=== PATIENT | female | born 1985 | race Caucasian/White ===

== ENCOUNTER → 2017-06-04 | Outpatient (CLI) | payer OTHER | END | disposition home or self-care (01) | LOC: C.PAPS 15:45 | PROVIDERS: ATTEND Physician Assistant | DX: Z12.4 Encounter for screening for malignant neoplasm of cervix (principal) ==

== ENCOUNTER → 2017-07-15 | Outpatient (CLI) | payer OTHER | END | disposition home or self-care (01) | LOC: C.LABSPEC 11:05 | PROVIDERS: ATTEND Obstetrics & Gynecology | DX: Z34.81 Encounter for supervision of other normal pregnancy, first trimester (principal) ==

== ENCOUNTER → 2017-07-15 | Outpatient (CLI) | payer OTHER ==
[2017-07-15 14:38] LABS: BASO % 0.1 %; BASO ABS # 0.01 K/uL (0-0.2); EOS ABS # 0.08 K/uL (0-0.5); HEMATOCRIT 39.1 % (37-47); HEMOGLOBIN 13.6 g/dL (12.0-16.0); IG# 0.01 K/uL (0.00-0.02); LYMPH % 20.3 %; MEAN CORPUSCULAR HGB CONC 34.8 g/dl (32-36); MEAN PLATELET VOLUME 10.8 fL (7.4-10.4); MONO % 5.5 %; MONO ABS # 0.43 K/uL (0.11-0.59); NEUT ABS # 5.75 K/uL (1.4-6.5); PLATELET COUNT 199 K/uL (130-400); RED CELL DISTRIBUTION WIDTH CV 12.9 % (11.5-14.5); RED CELL DISTRIBUTION WIDTH SD 43.3 fL (36.4-46.3); WHITE BLOOD COUNT 7.88 K/uL (4.8-10.8)
== END | disposition home or self-care (01) ==
LOC: C.LAB1850 12:31
PROVIDERS: ATTEND Obstetrics & Gynecology
DX: Z34.81 Encounter for supervision of other normal pregnancy, first trimester (principal)

== ENCOUNTER → 2017-12-03 | Outpatient (CLI) | payer OTHER ==
[2017-12-03 09:37] LABS: HEMATOCRIT 36.3 % (37-47); HEMOGLOBIN 12.7 g/dL (12.0-16.0)
== END | disposition home or self-care (01) ==
LOC: C.LAB1850 07:06
PROVIDERS: ATTEND Obstetrics & Gynecology
DX: Z34.83 Encounter for supervision of other normal pregnancy, third trimester (principal)

== ENCOUNTER 2023-11-24 20:15 | Inpatient (IN) ==
[2023-11-24 20:48] LABS: Basophils # (auto) 0.01 K/uL (0.00-0.20); Basophils % (auto) 0.1 %; Eosinophils # (auto) 0.12 K/uL (0.00-0.50); Eosinophils % (auto) 1.1 %; Hematocrit (blood only) 38.4 % (37.0-47.0); Immature Granulocytes # (auto) 0.04 K/uL (0.01-0.20); Immature Granulocytes % (auto) 0.4 %; Lymphocytes # (auto) 1.15 K/uL (1.20-3.40); Lymphocytes % (auto) 10.8 %; Mean Corpuscular Hemoglobin 31.4 pg (25.0-34.0); Mean Corpuscular Hgb Conc 33.9 g/dL (32.0-36.0); Mean Corpuscular Volume 92.8 fL (80.0-100.0); Mean Platelet Volume 10.5 fL (9.4-12.4); Monocytes # (auto) 0.56 K/uL (0.11-0.59); Monocytes % (auto) 5.3 %; Neutrophils # (auto) 8.72 K/uL (1.40-6.50); Neutrophils % (auto) 82.3 %; Platelet Count 180 K/uL (130-400); RDW Coefficient of Variation 12.1 % (11.5-14.5); RDW Standard Deviation 41.5 fL (36.4-46.3); Red Blood Count 4.14 M/uL (4.20-5.40)
[2023-11-24 20:56] LABS: Appearance Urine Clear (Clear); Bacteria Urine Automated None Seen (None Seen); Bilirubin Urine Negative (Negative); Blood Urine 1+ (Negative); Cast Urine Automated 0-2 /lpf (0-2); Color Urine Yellow; Epithelial Cell Urine Auto 0-2 /hpf (0-2); Glucose Urine UA Negative (Negative); Ketones Urine Trace (Negative); Leukocyte Esterase Urine Negative (Negative); Nitrite Urine Negative (Negative); Protein Urine Negative (Negative); RBC Urine Automated 0-2 /hpf (0-2); Specific Gravity Urine 1.008 (1.000-1.030); Urobilinogen Urine Negative (Negative); WBC Urine Automated 0-5 /hpf (0-5); pH Urine 6.5 (4.5-7.5)
--- NOTE | 2023-11-24 20:56 | Emergency Department Note ---
History of Present Illness General Chief complaint: Abdominal Pain Stated complaint: CT AT [place], DX APPENDICITIS, ABD PAIN, NAUSEA Time Seen by Provider: 11/24/23 20:54 History of Present Illness Maximum Pain Intensity: 2 NAME: MARA LOW AGE: 38 SEX: F : 1985 ARRIVES VIA: Walk-In INFORMANT: Patient ED PROVIDER(S): CONNOR Baca, Michael Montaño MD The patient is a pleasant well-appearing 38-year-old female who arrives to the emergency department for evaluation of right lower quadrant abdominal pain. She reports she was seen as an outpatient at [facility] today and had a CT scan performed of the abdomen and pelvis that showed acute appendicitis. She reports has been having abdominal pain since yesterday at 1:00. She denies fever, however reports nausea without vomiting. Her vital signs are currently stable, she is afebrile. Home Medications Medication Instructions Recorded Confirmed Type metronidazole 0.75 % topical cream 1 applic topical DAILY #45 grams 09/04/23 11/24/23 Rx oxymetazoline 1 % topical cream 1 applic topical DAILY #30 grams 09/04/23 11/24/23 Rx (Rhofade) Allergies Allergy/AdvReac Type Severity Reaction Status Date / Time No Known Allergies Allergy Verified 11/24/23 22:29 Past Med/Surg History Problem List (Updated 11/25/23 @ 01:18 by CONNOR Mcgee) Acute appendicitis (Acute) Acute appendicitis Umbilical hernia Perineal laceration during delivery, delivered Spontaneous vaginal delivery Encounter for pre-operative examination Spontaneous rupture of amniotic membranes 40 weeks gestation of Post-dates (Acute) Medical History GERD (gastroesophageal reflux disease) Occasional heartburn History of varicella Heart murmur Asymptomatic. Had it since childbirth Surgical History H/O oral surgery [place] teeth removed Social History Smoking Status: Never smoker Second Hand Exposure: No; Do You Dip or Chew Tobacco: No; Hx Alcohol Use: No Hx Substance Use: No Preferred Language: Occitan Communication Ability: Effective Parlor Maid Required: No Beliefs That Will Affect Care: None marital status: Current Living Situation: Spouse Other Information That Helps Us Care for You: No Feels Safe at Home: Yes Safety Concerns: Feels Safe At This Time Assistive Devices: None Physical Exam Vital Signs Vital Signs - 24 hr 11/24/23 20:19 11/24/23 20:22 11/24/23 20:32 Temperature 36.9 C Temperature Source Temporal Artery Scan Pulse Rate 80 Respiratory Rate 18 Respiratory Effort / Characteristics Non-Labored Respiratory Depth Normal Normal Blood Pressure 125/80 Blood Pressure Mean 95 Pulse Oximetry 99 Oxygen Delivery Method Room Air Room Air Sepsis Recent Fever Within 48 Hours No Sepsis New/Unexplained Change in Mental Status No Sepsis Action Taken by Nursing No Action Required VITALS: Vitals are noted on the nurse's note and reviewed by myself. Vital signs stable. GENERAL: 38-year-old female, in no acute distress, nondiaphoretic, well- developed well-nourished. SKIN: The skin was without rashes, erythema, edema, or bruising. HEAD: Normocephalic atraumatic. HEART: Regular rate and rhythm without murmurs gallops or rubs. LUNGS: Clear to auscultation bilaterally without wheezes, rales or rhonchi. No retractions or accessory muscle use. ABDOMEN: Positive bowel sounds x 4. Soft, tender to palpation right lower quadrant, Christina sign negative. No guarding or rebound tenderness. MUSCULOSKELETAL: No muscle atrophy, erythema, or edema noted. Normal gait. Strength 5/5 throughout. NEURO: Patient was alert and oriented to person place and time. No focal neurological deficits. Course Administered Medications Sodium Chloride (Nss) 1,000 mls @ 125 mls/hr IV .Q8H SHANNAN Stop: 12/24/23 22:29 Last Admin: 11/24/23 22:37 Dose: 125 mls/hr Documented By: BOB Acetaminophen (Ofirmev) 1,000 mg in 100 mls @ 400 mls/hr IV Q8H PRN PRN Reason: Moderate Pain (Scale 4, 5, 6) Stop: 11/27/23 22:15 Last Infusion: 11/25/23 00:41 Dose: Infused Documented By: Admin: 11/24/23 22:38 Dose: 400 mls/hr Documented By: BOB Ondansetron HCl (Ondansetron Inj 2 Mg/Ml 2 Ml Vial) 4 mg IV Q6H PRN PRN Reason: Nausea And Vomiting Stop: 12/24/23 22:15 Last Admin: 11/24/23 22:38 Dose: 4 mg Documented By: BOB Discontinued Medications Piperacillin Sod/Tazobactam Sod (Zosyn) 4.5 gm in 100 mls @ 200 mls/hr IV NOW ONE Stop: 11/24/23 22:12 Last Infusion: 11/24/23 22:32 Dose: Infused Documented By: Admin: 11/24/23 21:50 Dose: 200 mls/hr Documented By: GOLDEN Medical Decision Making Differential Diagnosis Appendicitis, ovarian cyst, ovarian torsion, ectopic , TOA, PID, infections, diverticulitis, UTI, obstruction, mesenteric ischemia, aortic pathology, inflammatory bowel disease, renal colic, PUD, pancreatitis, biliary pathology, hernia, volvulus, constipation, as well as other pathologies. Medical Records Attestation: I reviewed the patient's medical records. Home Medications Current Medication List: was personally reviewed by me Laboratory Data Attestation: I reviewed the patient's lab results. No leukocytosis, stable hemoglobin hematocrit, no electrolyte abnormalities, hCG negative, urinalysis negative for infection. 11/24/23 20:29 11/24/23 20:29 Lab Results 11/24/23 Range/Units 20:29 WBC 10.60 (4.8-10.8) K/ul RBC 4.14 L (4.20-5.40) M/uL Hgb 13.0 (12.0-16.0) g/dl Hct 38.4 (37.0-47.0) % MCV 92.8 (80.0-100.0) fL MCH 31.4 (25.0-34.0) pg MCHC 33.9 (32.0-36.0) g/dL RDW Std Deviation 41.5 (36.4-46.3) fL RDW Coeff of James 12.1 (11.5-14.5) % Plt Count 180 (130-400) K/uL MPV 10.5 (9.4-12.4) fL Immature Gran % (Auto) 0.4 % Neut % (Auto) 82.3 % Lymph % (Auto) 10.8 % Josephine % (Auto) 5.3 % Eos % (Auto) 1.1 % Baso % (Auto) 0.1 % Neut # (Auto) 8.72 H (1.40-6.50) K/uL Lymph # (Auto) 1.15 L (1.20-3.40) K/uL Josephine # (Auto) 0.56 (0.11-0.59) K/uL Eos # (Auto) 0.12 (0.00-0.50) K/uL Baso # (Auto) 0.01 (0.00-0.20) K/uL Immature Gran # (Auto) 0.04 (0.01-0.20) K/uL Sodium 138 (136-145) mmol/L Potassium 3.5 (3.5-5.1) mmol/L Chloride 103 (98-107) mmol/L Carbon Dioxide 28 (21-32) mmol/L Anion Gap 7 (3-11) BUN 8 (6-23) mg/dl Creatinine 0.85 (0.6-1.2) mg/dl Est Cr Clr Drug Dosing 91.2 ml/min Est GFR ( Amer) 101.5 ml/min Est GFR (Non-Af Amer) 87.5 ml/min BUN/Creatinine Ratio 9.4 L (10-20) Glucose 93 (70-99(Fasting)) mg/dl Calcium 9.4 (8.6-10.3) mg/dl Total Bilirubin 0.8 (0.2-1.0) mg/dl AST 16 (13-39) U/L ALT 10 (7-52) U/L Alkaline Phosphatase 65 (34-104) U/L Total Protein 7.7 (6.0-8.3) gm/dl Albumin 4.6 (3.4-5.0) gm/dl Globulin 3.1 (2.5-4.0) gm/dl Albumin/Globulin Ratio 1.5 (0.9-2) Lipase 28 (11-82) U/L HCG, Qual Negative (Negative) Urine Color Yellow Urine Appearance Clear (Clear) Urine pH 6.5 (4.5-7.5) Ur Specific [place] 1.008 (1.000-1.030) Urine Protein Negative (Negative) Urine Glucose (UA) Negative (Negative) Urine Ketones Trace H (Negative) Urine Blood 1+ H (Negative) Urine Nitrite Negative (Negative) Urine Bilirubin Negative (Negative) Urine Urobilinogen Negative (Negative) Ur Leukocyte Esterase Negative (Negative) Urine WBC (Auto) 0-5 (0-5) /hpf Urine RBC (Auto) 0-2 (0-2) /hpf U Hyaline Cast (Auto) 0-2 (0-2) /lpf U Epithel Cells (Auto) 0-2 (0-2) /hpf Urine Bacteria (Auto) None Seen (None Seen) Blood Pressure Blood Pressure Findings: Normal blood pressure MDM Narrative The patient is a pleasant well-appearing 38-year-old male who arrives to the emergency department with the above complaint. Upon examination the patient was able to provide a report showing an outpatient CT with a diagnosis of acute appendicitis. A saline was established, CBC, CMP, hCG qualitative, as well as urinalysis were obtained. CBC shows no leukocytosis, with stable hemoglobin moderate. CMP shows no electrolyte abnormalities. Urinalysis is negative for infection. Beta-hCG negative. No repeat imaging was obtained due to the availability of the report. I spoke with [facility] general surgery who agreed to accept the patient for admission with surgical intervention the next morning due to the patient eating at approximately 7 PM. An IV dose of Zosyn was ordered for the patient and administered per general surgery's request. Case management was contacted to facilitate admission. Please refer to general surgery's documentation for further patient care. Continuous monitor worker: Order was placed for continuous monitor worker. Patient was placed on the monitor worker. Patient was noted to be in normal sinus rhythm at an initial rate of 80 bpm. Impression & Plan Acute appendicitis Discharge Plan Visit Data Chief Complaint: Abdominal Pain Stated Complaint: CT AT [place], DX APPENDICITIS, ABD PAIN, NAUSEA ED Provider: Michael Montaño ED Midlevel Provider: Jena Meléndez Discharge Problem: Acute appendicitis Discharge Instructions Interventions: ED Discharge Assessment Last Done: 11/24/23 23:29 Discharge Problem: Acute appendicitis Qualifiers: Acute appendicitis type: unspecified acute appendicitis type Qualified Code(s): K35.80 - Unspecified acute appendicitis
[2023-11-24 21:08] LABS: Pregnancy Test, Serum Negative (Negative)
[2023-11-24 21:12] LABS: Albumin Globulin Ratio 1.5 (0.9-2); Albumin Level 4.6 gm/dl (3.4-5.0); BUN Creatinine Ratio 9.4 (10-20); Bilirubin,Total 0.8 mg/dl (0.2-1.0); Calcium 9.4 mg/dl (8.6-10.3); Creatinine Clr Calc Pharmacy 91.2 ml/min; Est GFR (African American) 101.5 ml/min; Est GFR (Non-African American) 87.5 ml/min; Globulin 3.1 gm/dl (2.5-4.0); Potassium 3.5 mmol/L (3.5-5.1); Total Protein 7.7 gm/dl (6.0-8.3)
[2023-11-24] MEDS: PIPERACILLIN/TAZOBACTAM 4.5 GM/100 ML BAG IV ONE (21:50)
[2023-11-24] MEDS ORDERED: MoRPHine SULFATE 4 MG/ML 1 ML CARP\\VIAL IV PRN (22:16)
--- NOTE | 2023-11-24 22:16 | History & Physical Report ---
Date of Service November 24, 2023 Assessment & Plan (1) Acute appendicitis: Plan: Do to the patient's clinical symptoms as well as findings on her CT scan at [place] she will be admitted to the surgical service proceeding as follows: N.p.o. status will be implemented Antibiotics will be providedZosyn has been initiated in the emergency department this will continue Analgesics will be provided Antiemetics will be provided We will provide IV fluid for hydration We will tentatively plan on having the patient undergo an appendectomy with Dr. Pierre Jackson of [facility] physician group general surgery on 11/25/2023. I have discussed the risks, benefits, and alternatives with the patient and she wishes to proceed At the present time the patient is comfortable resting in bed and in no distress. She is normotensive without tachycardia or fever and does not exhibit leukocytosis on labs. Additional recommendations will be forthcoming based on operative findings and her postoperative recovery thereafter Will use SCDs for DVT prevention, no chemical means due to planned surgery She will be a level 1 full code History of Present Illness Chief Complaint: "I was told I have appendicitis" Primary Care Provider: Libby Hernandez DO This is a 38-year-old female who presented to the emergency department at the recommendation of her primary care team. The patient notes that she developed some periumbilical abdominal pain at approximate 1:00 PM on 11/23/2023. Because of this she sought medical attention with her primary care team who ordered an outpatient CT scan which was performed in [place], [place]. This will be described below. The patient now notes that the pain is mostly in her lower abdomen. She denies any fevers, shakes, or chills. She has had some nausea without emesis. She denies any modifying factors to her pain. She has never had any prior abdominal surgeries. Her most recent oral intake was at approximately 7:00 PM where she says she ate a Nepali weller. The CT scan report was obtained from [facility]. This showed the patient had some thickening of the tip of the cecum and the appendix. The appendix was dilated at approximately 12 mm with some periappendiceal inflammatory changes. There is no free fluid within the pelvis and no free intraperitoneal air. The interpreting radiologist felt that this likely represented an uncomplicated acute appendicitis. Since arrival to [facility] the patient has had labs performed where CBC revealed white blood cell count, hemoglobin, hematocrit, and platelet count were normal. Chemistry profile showed sodium and potassium as well as the BUN and creatinine were normal. There is no elevation of LFTs or lipase. Urinalysis was not indicative of infection. A test was negative. At the time my interview the patient was resting comfortably in bed and she was no distress. Allergies Allergy/AdvReac Type Severity Reaction Status Date / Time No Known Allergies Allergy Verified 11/24/23 22:29 Home Medications Medication Instructions Recorded Confirmed Type metronidazole 0.75 % topical cream 1 applic topical DAILY #45 grams 09/04/23 11/24/23 Rx oxymetazoline 1 % topical cream 1 applic topical DAILY #30 grams 09/04/23 11/24/23 Rx (Rhofade) Past Med/Surg History Problem List (Updated 11/25/23 @ 01:18 by CONNOR Mcgee) Acute appendicitis (Acute) Acute appendicitis Umbilical hernia Perineal laceration during delivery, delivered Spontaneous vaginal delivery Encounter for pre-operative examination Spontaneous rupture of amniotic membranes 40 weeks gestation of Post-dates (Acute) Medical History GERD (gastroesophageal reflux disease) Occasional heartburn History of varicella Heart murmur Asymptomatic. Had it since childbirth Surgical History H/O oral surgery [place] teeth removed Social History Smoking Status: Never smoker Second Hand Exposure: No; Do You Dip or Chew Tobacco: No; Hx Alcohol Use: No Hx Substance Use: No Preferred Language: French Communication Ability: Effective Bit Welder Required: No Beliefs That Will Affect Care: None marital status: Current Living Situation: Spouse Other Information That Helps Us Care for You: No Feels Safe at Home: Yes Safety Concerns: Feels Safe At This Time Assistive Devices: None Review of Systems Review of Systems: All systems reviewed & are unremarkable except as noted in HPI & below Physical Exam Constitutional: WD/WN, vitals as above Eyes: no conjunctival abnormality ENMT: Ears: no hearing impairment and no external ear abnormality Mouth: no oropharynx abnormality Neck: trachea midline Respiratory: normal respiratory effort; no respiratory distress and no labored breathing Cardiovascular: Rate/Rhythm: regular rate and regular rhythm Vessels: dorsalis pedis pulses present and radial pulses present Gastrointestinal (Abdomen): Abdomen is soft and nondistended. There is no rigidity. There is no rebound tenderness or guarding. Patient did have some tenderness with palpation greatest in the right lower quadrant over McBurney's point Musculoskeletal: No calf tenderness Skin: no rashes Neurologic: moves all extremities Psychiatric: A+Ox3, euthymic affect Results & Data Results & Data Vital Signs (Past 12 Hours) Vital Signs Temp Pulse Resp BP Pulse Ox O2 Del Method 11/24/23 20:22 Room Air 11/24/23 20:19 36.9 C 80 18 125/80 99 Room Air Supervising Physician Co-Signing Physician Notes I personally saw and evaluated the patient with Giuliano Barber PA-C and agree with the assessment and plan. 38 yo female with acute appendicitis Her CT report was reviewed, images were not available Admit, keep NPO, give IV ABX Will plan on a laparoscopic appendectomy, possible open PG Care Time/CCT Total # of Minutes Spent Total Time Spent with Patient: Total time spent is greater than 50% in coordination of care (as documented) at patient's floor/unit and/or counseling patient: Coding Level of Care Code 26007 INT INP/OBS CARE 3/75MIN Diagnoses Acute appendicitis K35.80
[2023-11-24] MEDS: SODIUM CHLORIDE 0.9% 1,000 ML IV SCH (22:37)
[2023-11-24] MEDS: ONDANSETRON INJ 2 MG/ML 2 ML VIAL IV PRN (22:38)
[2023-11-24] MEDS: ACETAMINOPHEN 1,000 MG/100 ML VIAL IV PRN (22:38)
[2023-11-25] MEDS: PIPERACILLIN/TAZOBACTAM 4.5 GM in DEXTROSE 5% MINI-B 100 ML IV SCH (04:05)
--- NOTE | 2023-11-25 09:58 | Surgery Progress Note ---
Date of Service November 25, 2023 Assessment & Plan (1) Acute appendicitis: Plan: Proceed today with laparoscopic appendectomy, possible open Consent was obtained, risks discussed including bleeding, infection, leak, abscess Admission and Anticipated Discharge Date Admission Date: November 24, 2023 Subjective Pt seen and examined. Still with RLQ pain. Afebrile. NO N/V. Review of Systems Constitutional: no fever and no chills Gastrointestinal: + abdominal pain; no nausea and no vomit ing Physical Exam Constitutional: WD/WN, vitals as above Gastrointestinal (Abdomen): Inspection/Auscultation: abdomen normal to inspection; abdomen not distended Percussion/Palpation: + abdomen tender (RLQ), + guarding and abdomen soft Results & Data Vital Signs (Past 12 Hours) Vital Signs Temp Pulse Resp BP Pulse Ox O2 Del Method 11/25/23 07:27 36.7 C 72 18 116/72 98 Room Air 11/25/23 04:44 37 C 56 L 18 104/69 98 Room Air 11/25/23 04:37 Room Air 11/25/23 04:07 51 L 16 92/55 L 98 Room Air 11/25/23 02:16 50 L 16 95/60 L 98 Room Air 11/24/23 22:30 65 18 110/72 98 PG Care Time/CCT Total # of Minutes Spent Total Time Spent with Patient: Total time spent is greater than 50% in coordination of care (as documented) at patient's floor/unit and/or counseling patient: Coding Level of Care Code 91436 SUB INP/OBS CARE 1/25MIN Diagnoses Acute appendicitis K35.80 Acute appendicitis type: unspecified acute appendicitis type (1) Acute appendicitis Acute appendicitis type: unspecified acute appendicitis type Qualified Code(s): K35.80 - Unspecified acute appendicitis
[2023-11-25] MEDS ORDERED: DEXAMETHASONE SOD INJ 4 MG/ML VIAL ONE (10:32)
[2023-11-25] MEDS ORDERED: fentaNYL citrate PF 100 MCG/2 ML VIAL ONE (10:32)
[2023-11-25] MEDS ORDERED: ONDANSETRON INJ 2 MG/ML 2 ML VIAL ONE (10:32)
[2023-11-25] MEDS ORDERED: ROCURONIUM BROMIDE 10 MG/ML 5 ML VIAL IV ONE (10:32)
[2023-11-25] MEDS ORDERED: LIDOCAINE 2% 2 ML VIAL/AMP(20MG/ML) INFIL ONE ×2 (10:32→12:40)
[2023-11-25] MEDS ORDERED: PROPOFOL IV EMULSION 10 MG/ML 20 ML VIAL IV ONE (10:32)
[2023-11-25] MEDS ORDERED: MIDAZOLAM HCL 1 MG/ML 2ML VIAL ONE (10:32)
[2023-11-25] MEDS: LACTATED RINGER'S 1,000 ML IV SCH ×2 (10:44→15:08)
[2023-11-25] MEDS ORDERED: KETOROLAC 30 MG/ML VIAL ONE (13:00)
[2023-11-25] MEDS: BUPIVACAINE/EPINEPHRINE 0.25% 1:200,000 30 ML VIAL ONE (13:06)
[2023-11-25] MEDS: FLOSEAL HEMOSTATIC MATRIX 5ML TOP ONE (13:06)
--- NOTE | 2023-11-25 13:16 | Post Operative Brief Note ---
PG Immediate Post Op with CF Date of Surgery November 25, 2023 Pre & Post Diagnosis Operation Date: 11/25/23 09:40 Pre-Op Diagnosis: Acute appendicitis Post-Op Diagnosis: Acute appendicitis without perforation I identified the patient and participated in the time-out.: Yes Procedure Operation Date: 11/25/23 09:40 Actual Procedures p Laparoscopic Appendectomy(Not Applicable) - Daniel Cardoso DO Surgeon Daniel Cardoso DO Construction Rigger Anabelle Roy PA-C Estimated Blood Loss 5 Findings See Below Acutely inflamed, dilated appendix without perforation Specimens Specimen Description: A. Appendix Drains Guardado Catheter (Inserted prior to procedure start by Kalia Regalado RN; 10cc in balloon; Clear, yellow urine returned) Anesthesia Type General Complications none Disposition Disposition: Recovery Room
--- NOTE | 2023-11-25 13:20 | Operative Report ---
PG Post Operative Report Pre & Post Diagnosis Operation Date: 11/25/23 09:40 Pre-Op Diagnosis: Acute appendicitis Post-Op Diagnosis: Acute appendicitis without perforation I identified the patient and participated in the time-out.: Yes Procedure Operation Date: 11/25/23 09:40 Actual Procedures p Laparoscopic Appendectomy(Not Applicable) - Daniel Cardoso DO Surgeon Daniel Cardoso DO Beauty Sales Consultant Anabelle Roy PA-C Estimated Blood Loss 5 Findings See Below Acutely inflamed, dilated appendix without perforation Specimens Appendix to pathology Drains None Anesthesia Type General Complications none Disposition Disposition: Recovery Room Indications 38 yo female with acute appendicitis Description of Procedure The patient was brought to the OR and placed in the supine position and SCD's placed. At this time she underwent general endotracheal anesthesia without incident. At this time a Guardado catheter was placed under sterile conditions. Her abdomen was prepped and draped in the usual sterile fashion. She was given appropriate pre-operative antibiotics. A timeout was called, the procedure was verified as Laparoscopic appendectomy, possible open. Surgical, anesthesia and nursing teams agreed and the procedure was begun. After injection of 0.25% Marcaine with epinephrine, a supraumbilical incision was made using a #11 blade scalpel and carried down to the fascia with a hemostat. The abdomen was then elevated with towel clamps and entered using the Veress needle confirming position using the saline drop test. Pneumoperitoneum was established and 5mm trocar was placed. Laparoscope was introduced. No injury was seen from our entrance to the abdomen. At this time a 5mm suprapubic port and 12mm LLQ port were placed under direct visualization. The patient was placed in Trendelenburg and rotated to the left. At this time the appendix was visualized and the tip was freed and elevated toward the abdominal wall. The appendix appeared inflamed, dilated and edematous without rupture. A window was created in the mesoappendix at the base of the appendix. A 45mm purple load stapler was then fired across the base of the appendix which appeared healthy. The mesoappendix was then taken using Harmonic device. The appendix was then placed in an Endocatch bag and removed through the LLQ port site. Staple line was inspected and was intact. Hemostasis was complete. 5mL Floseal hemostatic agent was placed on the staple line and along the mesoappendix. The 12 mm port was then closed at the fascial level using a 0 Vicryl suture using the suture passer. All ports were removed under direct visualization and no bleeding was noted. The abdomen was desufflated and the skin was closed using 4-0 Monocryl in a subcuticular fashion. Sterile dressings were applied. Guardado catheter was removed. The patient was then awakened from anesthesia having remained stable throughout the entire case and transported to PACU. All needle and sponge counts were correct x 2. The physician assistant clinical nurse manager was present and scrubbed for the entire procedure. She was essential in positioning, prepping and draping the patient, retraction and exposure, closure of the incisions and placement of the dressings. I attest to the content of the Intraoperative Record and any orders documented therein. Any exceptions are noted below.
[2023-11-25] MEDS ORDERED: oxyCODONE HCL IR 5 MG TAB (IMMEDIATE RELEASE) PO PRN ×2 (13:40)
--- NOTE | 2023-11-25 15:07 | Anesthesiology Progress Note ---
Date of Service November 25, 2023 Anesthesia Post Procedure Vital Signs Vital Signs: Temp Pulse Pulse Pulse Resp BP BP 11/25/23 14:50 36.8 C 61 12 112/74 11/25/23 14:23 36.8 C 54 L 115/77 11/25/23 14:00 36.6 C 61 14 114/65 11/25/23 13:50 62 12 111/61 11/25/23 13:49 66 14 106/59 L 11/25/23 13:40 66 14 106/59 L 11/25/23 13:30 36.3 C L 78 16 108/66 11/25/23 10:29 36.8 C 57 L 20 136/86 11/25/23 07:27 36.7 C 72 18 116/72 11/25/23 04:44 37 C 56 L 18 104/69 11/25/23 04:37 11/25/23 04:07 51 L 16 92/55 L 11/25/23 02:16 50 L 16 95/60 L 11/24/23 22:30 65 18 110/72 11/24/23 20:22 11/24/23 20:19 36.9 C 80 18 125/80 Pulse Ox O2 Del Method O2 Flow Rate 11/25/23 14:50 98 Room Air 11/25/23 14:23 100 Room Air 11/25/23 14:00 99 Room Air 11/25/23 13:50 98 Room Air 11/25/23 13:49 99 11/25/23 13:40 99 Oxymask 4 11/25/23 13:30 98 Oxymask 4 11/25/23 10:29 100 Room Air 11/25/23 07:27 98 Room Air 11/25/23 04:44 98 Room Air 11/25/23 04:37 Room Air 11/25/23 04:07 98 Room Air 11/25/23 02:16 98 Room Air 11/24/23 22:30 98 11/24/23 20:22 Room Air 11/24/23 20:19 99 Room Air Pain Intensity Right Shoulder: Pain Intensity: 5 Abdomen: Pain Intensity: 4 Transfer of Care Handoff Completed per policy Notes Mental Status: alert / awake / arousable and participated in evaluation Nausea / Vomiting: adequately controlled Pain: adequately controlled Airway Patency, RR, SpO2: stable & adequate BP & HR: stable & adequate Hydration State: stable & adequate Anesthetic Complications: no major complications apparent and Pt Satisfied with anesthetic care
== END 2023-11-25 18:40 | disposition home or self-care (01) | DRG 399 ==
LOC: ED 20:15 → EDINP 22:20 → 2N 11-25 04:37
DX: K35.80 Unspecified acute appendicitis